=== PATIENT | female | born 1975 | race Caucasian/White ===

== ENCOUNTER 2017-05-09 11:09 | Emergency (ER) | payer OTHER ==
[2017-05-09] MEDS ORDERED: Sodium Chloride 0.9% 1,000 ML PRIMARY IV ONE (11:21)
[2017-05-09] MEDS ORDERED: Pantoprazole Inj 40 MG in Normal Saline Flush 10 ML IVP ONE (11:21)
[2017-05-09] MEDS ORDERED: NORMAL SALINE 10 ML SYRINGE FLUSH IVP PRN (11:21)
[2017-05-09 11:29] VITALS: RESP 18; TEMP 98.5
[2017-05-09] MEDS ORDERED: PANTOPRAZOLE IV 40 MG VIAL ONE (11:40)
[2017-05-09 11:51] LABS: BASOPHILS # (AUTO) 0.15 10*3/UL; BASOPHILS % (AUTO) 2.1 % (0-1); EOSINOPHILS # (AUTO) 0.11 10*3/UL; EOSINOPHILS % (AUTO) 1.5 % (0-8); HEMATOCRIT 43.9 % (37.0-47.0); HEMOGLOBIN 14.1 g/dL (12.0-16.0); LYMPHOCYTES # (AUTO) 1.81 10*3/uL; MEAN CORPUSCULAR HGB CONC 32.1 g/dL (33-37); MEAN CORPUSCULAR VOLUME 90.1 FL (81-99); MEAN PLATELET VOLUME 11.5 FL (7.4-12.2); MONOCYTES # (AUTO) 0.51 10*3/UL (0.3-0.8); MONOCYTES % (AUTO) 7.2 % (5-15); NEUTROPHILS # (AUTO) 4.49 10*3/UL; NEUTROPHILS % (AUTO) 63.3 % (50-80); RED BLOOD COUNT 4.87 10^6/uL (4.20-5.40)
[2017-05-09 11:54] LABS: BLOOD UREA NITROGEN 15 mg/dL (7-22); BUN/CREATININE RATIO 18.75 (6-20); CALCIUM 9.5 mg/dL (8.7-10.7); EST GLOMERULAR FILTRATION > 60 (>60 ml/min/1.73m(2)); LIPASE 186 IU/L (23-300); SERUM ALBUMIN 4.6 g/dL (3.5-4.8)
[2017-05-09 11:55] LABS: PLATELET MORPHOLOGY COMMENT NORMAL MORPHOLOGY (NORM); RBC MORPHOLOGY COMMENT NORMAL MORPHOLOGY (NORM); WBC MORPHOLOGY COMMENT NORMAL MORPHOLOGY (NORM)
[2017-05-09 12:15] LABS: BILIRUBIN,URINE NEGATIVE (NEG); CLARITY,URINE CLEAR (CLEAR); COLOR,URINE YELLOW; GLUCOSE, URINE (UA) NEGATIVE (NEG); NITRATE,URINE NEGATIVE (NEG); OCCULT BLOOD,URINE NEGATIVE (NEG); PH,URINE 7.5 (5.0-8.5); PROTEIN,URINE NEGATIVE (NEG); UROBILINOGEN,URINE 0.2 EU/dL (0.2)
[2017-05-09 12:17] LABS: URINE SAMPLE TYPE CLEAN CATCH URINE
--- NOTE | 2017-05-09 12:22 | PDOC ---
Abdomen/Flank HPI - General Chief Complaint: Abdomen Pain Stated Complaint: LUQ pain Date Seen by Provider: 05/09/17 Time Seen by Provider: 11:25 Source: POSITIVE: Patient Exam Limitations: POSITIVE: No limitations, Other (Patient is here in the emergency department with her healthcare advocate secondary to previous history of stroke and difficulty relating medical information and with memory at times) Nurse's Notes Reviewed & Considered: Yes - History of Present Illness Initial Comments: The patient is a 41-year-old female who presents to the emergency department with left upper quadrant abdominal pain. She states that she has an ongoing history of left upper quadrant abdominal pain for at least the past 2 years. She had previous sigmoid colon resection secondary to diverticulitis per Dr. Rivera in 2013. She also has had previous hysterectomy/bilateral oophorectomy, cholecystectomy. It sounds like she has undergone fairly extensive workup for this left upper quadrant abdominal pain previously. She was at one point diagnosed with gastroparesis. She states that she was evaluated at the [facility] in December of this year at which time she was told that this was likely not secondary to gastroparesis. 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 She states that much of her nausea and vomiting has improved since initiation of treatment with cortisol. She states that recently this pain in the left upper quadrant has worsened over the past week or 2. She states that she now also has a sharp stabbing pain that radiates through to the left flank. She denies fevers or chills. She states that her pain is not worsened with eating and her appetite has remained unchanged. She denies any change in bowel movements. She did have a colonoscopy down in [place] last week. She was told that she has several polyps as well as diverticular disease. Biopsies are still pending at this point. They did not perform endoscopy at the time of her colonoscopy. She denies urinary symptoms. She does not currently take any form of an acid medication. She previously was on proton pump inhibitor however this was discontinued several months back. She states that her current pain is most predominant just up underneath the rib on the left side, she does not have any increased pain with taking a deep breath and denies shortness of breath. - Patient Home Medications Home Medications: Home Medications Escitalopram Oxalate [Lexapro] 20 mg PO DAILY 05/09/17 Hydrocortisone 5 mg PO DAILY 05/09/17 Pantoprazole Sodium [Protonix] 40 mg PO DAILY #30 tablet 05/09/17 - Patient Allergies Allergies/Adverse Reactions: Allergies Allergy/AdvReac Type Severity Reaction Status Date / Time morphine Allergy Severe BLACK OUT Verified 05/09/17 11:12 Penicillins Allergy Severe Anaphylaxis Verified 05/09/17 11:12 fentanyl Allergy NOT Verified 05/09/17 11:12 APPLICABLE Past Medical History - heen HEENT History: Dentures/Partials Cardiovascular History: Hypertension Additional Cardiovasular History: LEAKY HEART VALVE/ MURMUR Respiratory History: Asthma Additional Respiratory History: SMOKERS COUGH Gastrointestinal History: GERD, Diverticulitis Additional Gastrointestinal History: ULCER Genitourinary History: Denies History Endocrine History: Layton's Disease Musculoskeletal History: Back Pain, Joint Pain Prosthesis or Implant: No Additional Musculoskeletal History: RESTLESS LEGS Neurological History: Migraines Additional Neurological History: ONE WEEK AGO/DIZZINESS Blood Disorders: Denies History Psychiatric History: Depression, Anxiety Disorders, ADHD, PTSD History of Sexually Transmitted Diseases: No Cancer History: Denies History In Past Year Been Physically Harmed or Verbally Threatened: No History of MDRO: No History of Other Communicable Diseases: No Tobacco Use: Former Smoker Alcohol Use: Occasionally Substance Use Type: None Previous Surgical History: Yes Type / Date of Surgery: HYST/ COLONOSCOPY/ EGD/ TUBAL/ DENTAL SX Anesthesia Reactions: No Malignant Hyperthermia: No Significant Family History: Heart disease, Cancer Past Medical History Reviewed: Reviewed - No Changes ROS - Limitations ROS Limitations: No Limitations Constitution: DENIES: Chills, Fever Cardiovascular: DENIES: Chest Pain Respiratory: DENIES: Hurts To Breathe, Shortness Of Breath Neurological: REPORTS: Denies Neuro Symptoms Gastrointestinal: REPORTS: Abdominal Pain. DENIES: Nausea, Vomitting, Diarrhea , Black Stools, Bloody Stools, Constipation Musculoskeletal: REPORTS: Denies MS Symptoms Genitourinary: REPORTS: Denies Symptoms. DENIES: Dysuria, Hematuria, Difficulty Urinating Eyes: REPORTS: Denies Symptoms ENT: REPORTS: Denies Symptoms Skin: DENIES: Rash Abdominal/Flank Pain PE - General Appearance General Appearance: POSITIVE: Alert, Cooperative, No Acute Distress - HEENT HEENT: POSITIVE: Head Inspection Nml, Eyes Inspection Nml, Ears Inspection Nml, Nose Inspection Nml, Pharynx Inspect. Nml, PERRL, EOMI - Neck Neck: POSITIVE: Normal Inspection. NEGATIVE: Lymphadenopathy - Respiratory Respiratory: POSITIVE: No Respiratory Distress, Breath Sounds Normal - Cardiovascular Cardiovascular: POSITIVE: Regular Rate and Rhythm, Heart Sounds Normal Peripheral Pulses: Dorsalis-pedis (R): 2+, Dorsalis-pedis (L): 2+ - Abdomen Abdomen: Soft: (All Quadrants), Normal Bowel Sounds: (All Quadrants), No Guarding: (All Quadrants), No Rebound: (All Quadrants), No Distention: (All Quadrants) Additional Abdominal Details: She does have some tenderness in the left upper quadrant up underneath the rib margin, no guarding or rebound tenderness, no palpable mass, mild left-sided CVA tenderness - Skin Skin: POSITIVE: Intact, No Rash - Extremities Extremity: Normal ROM: (All Extremities), Normal Inspection: (All Extremities) - Neurological Neurological: POSITIVE: Oriented X3, lock plater Normal As Tested, Motor Normal, Sensation Normal, Other (No focal neurologic deficits) Abdomen Progress - Results Reviewed by me Xrays/CTs/US Reviewed by me: Yes Discussed with Radiologist: Yes Radiology Findings: CT scan of the abdomen and pelvis with IV contrast reveals no acute intra-abdominal findings per radiologist. Lab Results Reviewed: Yes Lab Results:: Laboratory Results 05/09/17 05/09/17 Range/Units 11:37 12:08 WBC 7.10 (4.8-10.8) 10^3/uL RBC 4.87 (4.20-5.40) 10^6/uL Hgb 14.1 (12.0-16.0) g/dL Hct 43.9 (37.0-47.0) % MCV 90.1 (81-99) FL MCH 29.0 (27-31) PG MCHC 32.1 L (33-37) g/dL RDW Std Deviation 44.7 (39-50) fL RDW Coeff of Kuldeep 13.9 (11.5-14.5) % Plt Count 229 (140-350) 10*3/uL MPV 11.5 (7.4-12.2) FL Immature Gran % (Auto) 0.4 (0-5) % Neut % (Auto) 63.3 (50-80) % Lymph % (Auto) 25.5 (10-50) % Harper % (Auto) 7.2 (5-15) % Eos % (Auto) 1.5 (0-8) % Baso % (Auto) 2.1 H (0-1) % Immature Gran # (Auto) 0.03 10*3/UL Neut # (Auto) 4.49 10*3/UL Lymph # (Auto) 1.81 10*3/uL Harper # (Auto) 0.51 (0.3-0.8) 10*3/UL Eos # (Auto) 0.11 10*3/UL Baso # (Auto) 0.15 10*3/UL WBC Morphology Comment Normal morphology (NORM) Plt Morphology Comment Normal morphology (NORM) RBC Morph Comment Normal morphology (NORM) Sodium 143 (135-145) meq/L Potassium 4.3 (3.8-5.2) meq/L Chloride 109 (98-112) meq/L Carbon Dioxide 22 L (23-33) meq/L Anion Gap 12 (5-20) BUN 15 (7-22) mg/dL Creatinine 0.8 (0.50-1.20) mg/dL Estimated GFR > 60 (>60 ml/min/1.73m(2)) BUN/Creatinine Ratio 18.75 (6-20) Glucose 83 (78-110) mg/dL Calculated Osmolality 295.0 H (267-292) mOsm/kg Calcium 9.5 (8.7-10.7) mg/dL Total Bilirubin 0.3 (0.3-1.2) mg/dL AST 31 (8-39) IU/L ALT 33 (9-52) IU/L Alkaline Phosphatase 96 (38-126) IU/L C-Reactive Protein 1.0 H (0.0-0.9) mg/dL Total Protein 7.9 (6.1-8.0) g/dL Albumin 4.6 (3.5-4.8) g/dL Globulin 3.3 (2.50-4.10) g/dL Albumin/Globulin Ratio 1.30 (1.3-2.0) mg/g Amylase 78 (30-110) U/L Lipase 186 (23-300) IU/L Ur Collection Type Clean catch urine Urine Color Yellow Urine Clarity Clear (CLEAR) Urine pH 7.5 (5.0-8.5) Ur Specific [place] 1.020 (1.005-1.030) Urine Protein Negative (NEG) mg/dl Urine Glucose (UA) Negative (NEG) mg/dL Urine Ketones Negative (NEG) Urine Occult Blood Negative (NEG) Urine Nitrate Negative (NEG) Urine Bilirubin Negative (NEG) Urine Urobilinogen 0.2 (0.2) EU/dL Ur Leukocyte Esterase Negative (NEG) Ur Culture Indicated? Culture not set - Patient's Progress MDM / ED Course: An IV was established and the patient did receive Protonix 40 mg IV. Her lab work is all reassuring. Her CT of the abdomen and pelvis with IV contrast reveals no evidence of acute intra-abdominal findings. She does have some degenerative change in her spine. At this point the patient has had left upper quadrant pain for greater than 2 years. There does not appear to be any acute findings of concern currently. She has been off of her proton pump inhibitor for some time and it is possible she may have some component of gastritis or ulcer. She is advised to start Protonix 40 mg daily. She will return to the emergency room if she develops increased pain, fever, any worsening or change in symptoms. She will follow-up with her technical assoc, general surgeon or primary care provider within 5-7 days. Patient Care Time - Estimated PCT Patient Care Time (In Minutes): 35 Vital Signs - Recent Vital Signs Vital Signs: Vital Signs (Last 8 hours) Temp Pulse Resp BP Pulse Ox 05/09/17 11:20 98.5 F 65 18 143/98 98 - VS Reviewed Vital Signs Reviewed: Yes Discharge Clinical Impression: Abdominal pain Discharge Disposition: Discharged to Home Condition: Stable Prescriptions / Orders: Pantoprazole Sodium [Protonix] 40 mg PO DAILY #30 tablet Patient Instructions Given at Discharge: Abdominal Pain (ED) Additional Instructions: The exact cause of the pain in the left upper abdomen that radiates through to the back remains unclear. Your blood work did not reveal any evidence of infection, liver functions and pancreatic enzymes were normal, electrolytes and kidney function was normal. The urinalysis did not reveal any evidence of blood or infection. The CAT scan did not show any evidence of tumor or mass, no evidence of infection. There was some degenerative changes in the spine. It is thought that this pain might represent some irritation in the stomach called gastritis or even an ulcer. Recommend starting Protonix 40 mg daily. Return to the emergency room if increased pain, fevers or chills, any worsening or change in symptoms. Recommend follow-up with gastroenterology, your general surgeon, or your primary care within 1 week. Follow Up With: TALISHA PATRICIA [Primary Care Provider] -
--- NOTE | 2017-05-09 14:34 | DI ---
CT ABD W/CN AND PELVIS W/CN,05/09/2017 11:22 AM: Clinical History: Upper abdominal pain status post colectomy. Previous Exam: None at this facility. Findings: Multiple helically acquired CT images are obtained through the abdomen and pelvis there is mild fatty infiltration of the liver. The spleen, adrenals and pancreas are unremarkable. The urinary bladder is unremarkable. There is no evidence of free air nor free fluid. Visualized portions of the colon are unremarkable. Patient is status post colectomy. The pancreas is unremarkable. There is no mesenteric nor retroperitoneal lymphadenopathy. The ureters are normal in course and caliber with orthotopic insertion on the urinary bladder. Mild diffuse degenerative changes of the spine are seen. Impression: No acute intra-abdominal pathology.
== END 2017-05-09 14:55 | disposition home or self-care (01) ==
LOC: ER 11:09
DX: R10.12 Left upper quadrant pain (principal); Z90.49 Acquired absence of other specified parts of digestive tract
CPT/HCPCS: 74177; 80053; 81003; 82150; 83690; 85025; 86140; 96374; 99283; J3490; J7030

== ENCOUNTER → 2017-05-21 | Outpatient (CLI) | payer OTHER | LOC: MMPC 10:00 | PROVIDERS: ATTEND Surgery | DX: D12.2 Benign neoplasm of ascending colon (principal) ==

== ENCOUNTER 2019-02-19 10:32 | Inpatient (IN) ==
[2019-02-19] MEDS ORDERED: Sodium Chloride 0.9% 1,000 ML PRIMARY IV ONE ×2 (10:48→13:28)
[2019-02-19 11:09] LABS: BASOPHILS # (AUTO) 0.05 10*3/UL; BASOPHILS % (AUTO) 0.4 % (0-1); EOSINOPHILS # (AUTO) 0.15 10*3/UL; EOSINOPHILS % (AUTO) 1.3 % (0-8); Hemoglobin [HGB] 15.1 g/dL (12.0-16.0); MEAN CORPUSCULAR HEMOGLOBIN 29.3 PG (27-31); MEAN CORPUSCULAR HGB CONC 33.6 g/dL (33-37); MEAN CORPUSCULAR VOLUME 87.4 FL (81-99); MEAN PLATELET VOLUME 11.7 FL (7.4-12.2); MONOCYTES # (AUTO) 0.75 10*3/UL (0.3-0.8); MONOCYTES % (AUTO) 6.5 % (5-15); NEUTROPHILS # (AUTO) 8.21 10*3/UL; NEUTROPHILS % (AUTO) 71.6 % (50-80); RED BLOOD COUNT 5.15 10^6/uL (4.20-5.40)
[2019-02-19 11:11] LABS: PLATELET MORPHOLOGY COMMENT NORMAL MORPHOLOGY (NORM); RBC MORPHOLOGY COMMENT NORMAL MORPHOLOGY (NORM); WBC MORPHOLOGY COMMENT NORMAL MORPHOLOGY (NORM)
[2019-02-19 11:21] LABS: BLOOD UREA NITROGEN 11 mg/dL (7-22); BUN/CREATININE RATIO 12.22 (6-20); LIPASE 142 IU/L (23-300); SERUM ALBUMIN 5.2 g/dL (3.5-4.8)
[2019-02-19 11:26] LABS: BILIRUBIN,URINE NEGATIVE (NEG); CLARITY,URINE CLEAR (CLEAR); COLOR,URINE YELLOW (Y); GLUCOSE, URINE (UA) NEGATIVE (NEG); OCCULT BLOOD,URINE NEGATIVE (NEG); PROTEIN,URINE NEGATIVE (NEG); UROBILINOGEN,URINE 0.2 EU/dL (0.2)
[2019-02-19 11:28] LABS: URINE SAMPLE TYPE CLEAN CATCH URINE
--- NOTE | 2019-02-19 11:41 | PDOC ---
Abdomen/Flank HPI - General Chief Complaint: Abdomen Pain Stated Complaint: abd pain Date Seen by Provider: 02/19/19 Time Seen by Provider: 10:45 Source: POSITIVE: Patient Exam Limitations: POSITIVE: No limitations Nurse's Notes Reviewed & Considered: Yes - History of Present Illness Initial Comments: The patient is a 43-year-old female who presents to the emergency department with complaints of worsening left lower abdominal pain. The patient states that she was seen at [facility] for left lower abdominal pain and continued pain in her left upper abdomen. She also had blood in her stool at that time. She was diagnosed with diverticulitis and started on Cipro and Flagyl. She states that she has been on this medication for approximately a week. She states that the pain in her left lower abdomen seems to be getting worse. She also feels more bloated. She states that she has not really been able to have much of a bowel movement for the past week. She does report increased nausea and had several episodes of emesis yesterday after eating some [employer]. She has not had any obvious fevers. She denies difficulty urinating. She does have a history of prior partial bowel resection secondary to a div erticulitis which ruptured in 2014. The surgery was done per Dr. Rivera and Dr. Cifuentes. - Patient Home Medications Home Medications: Home Medications Lisinopril 5 mg PO DAILY 02/06/19 - Patient Allergies Allergies/Adverse Reactions: Allergies Allergy/AdvReac Type Severity Reaction Status Date / Time morphine Allergy Severe BLACK OUT Verified 02/19/19 10:35 Penicillins Allergy Severe Anaphylaxis Verified 02/19/19 10:35 fentanyl Allergy NOT Verified 02/19/19 10:35 APPLICABLE topomax AdvReac Intermediate NOT Uncoded 02/19/19 10:35 APPLICABLE Past Medical History - heen HEENT History: Dentures/Partials Additional HEENT History: Upper and lower dentures Cardiovascular History: Denies History, Other (please comment) Additional Cardiovasular History: LEAKY HEART VALVE/ MURMUR. Denies HTN.DVT Respiratory History: Asthma, Sleep Apnea, Home CPAP Use, Snoring Additional Respiratory History: "SMOKERS COUGH". Gastrointestinal History: GERD, Diverticulitis Additional Gastrointestinal History: ULCER/Had hemicolectomy which took care of the diverticulitis Genitourinary History: Denies History, Other (please comment) Additional Genitourinary History: Fatty Liver Endocrine History: Trinity's Disease Musculoskeletal History: Fibromyalgia, Back Pain, Joint Pain Prosthesis or Implant: No Additional Musculoskeletal History: CERVICAL SPONDYLOSIS/ LUMBAR DDD. 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 History of Sexually Transmitted Diseases: No Cancer History: Denies History In Past Year Been Physically Harmed or Verbally Threatened: No History of MDRO: No History of Other Communicable Diseases: No Tobacco Use: Former Smoker Alcohol Use: Occasionally In the Past 12 Months, Have Used or Abuse Any Substance: None Previous Surgical History: Yes Type / Date of Surgery: HYST/BSO/ COLONOSCOPY/ EGD/ TUBAL/ DENTAL sx for dentures/Maryjane/ B CTR/Lasix Bilat/Lumbar Puncture/Hemicolectomy Anesthesia Reactions: No Malignant Hyperthermia: No Significant Family History: Asthma, Heart disease, Cancer, Diabetes, Hypertens ion, Lung disease Past Medical History Reviewed: Reviewed - No Changes ROS - Limitations ROS Limitations: No Limitations Constitution: REPORTS: Chills. DENIES: Fever Cardiovascular: REPORTS: Denies Cardiac Symptoms Respiratory: REPORTS: Denies Resp Symptoms Neurological: REPORTS: Denies Neuro Symptoms Gastrointestinal: REPORTS: Abdominal Pain, Nausea, Vomitting, Bloody Stools ([place] t week), Constipation Musculoskeletal: REPORTS: Denies MS Symptoms Genitourinary: REPORTS: Denies Symptoms Eyes: REPORTS: Denies Symptoms ENT: REPORTS: Denies Symptoms Skin: DENIES: Rash Abdominal/Flank Pain PE - General Appearance General Appearance: POSITIVE: Alert, Cooperative, No Acute Distress - HEENT HEENT: POSITIVE: Head Inspection Nml, Eyes Inspection Nml, Ears Inspection Nml, Nose Inspection Nml - Respiratory Respiratory: POSITIVE: No Respiratory Distress, Breath Sounds Normal - Cardiovascular Cardiovascular: POSITIVE: Regular Rate and Rhythm, Heart Sounds Normal Peripheral Pulses: Dorsalis-pedis (R): 2+, Dorsalis-pedis (L): 2+ - Abdomen Abdomen: Soft: (All Quadrants), Normal Bowel Sounds: (All Quadrants) Additional Abdominal Details: Her abdomen is somewhat distended, bowel sounds are present and she has no guarding or rebound tenderness, she does have tenderness in the left lower abdomen to deep palpation as well as some tenderness in the left upper abdomen, no CVA tenderness. - Back Back: POSITIVE: Normal Inspection - Skin Skin: POSITIVE: Intact, No Rash - Extremities Extremity: Normal ROM: (All Extremities), Normal Inspection: (All Extremities) - Neurological Neurological: POSITIVE: Oriented X3, manager clinical applications Normal As Tested, Motor Normal, Sensation Normal Abdomen Progress - Results Reviewed by me Xrays/CTs/US Reviewed by me: Yes Discussed with Radiologist: Yes Radiology Findings: CT scan of the abdomen and pelvis with IV contrast does show some worsening of the inflammatory change near the sigmoid colon consistent with worsening diverticulitis when compared to her CAT scan from 1 week ago at [facility] per radiologist. Lab Results Reviewed by Me: Yes CBC and BMP: 02/19/19 10:48 02/19/19 10:48 Lab Results:: Laboratory Results 02/19/19 02/19/19 02/19/19 10:48 10:48 10:50 WBC 11.48 H RBC 5.15 Hgb 15.1 Hct 45.0 MCV 87.4 MCH 29.3 MCHC 33.6 RDW Std Deviation 42.5 RDW Coeff of Kuldeep 13.5 Plt Count 236 MPV 11.7 Immature Gran % (Auto) 0.2 Neut % (Auto) 71.6 Lymph % (Auto) 20.0 [place] % (Auto) 6.5 Eos % (Auto) 1.3 Baso % (Auto) 0.4 Immature Gran # (Auto) 0.02 Neut # (Auto) 8.21 Lymph # (Auto) 2.30 [place] # (Auto) 0.75 Eos # (Auto) 0.15 Baso # (Auto) 0.05 WBC Morphology Comment Normal morphology Plt Morphology Comment Normal morphology RBC Morph Comment Normal morphology Sodium 142 Potassium 3.8 Chloride 107 Carbon Dioxide 24 Anion Gap 11 BUN 11 Creatinine 0.9 Estimated GFR > 60 BUN/Creatinine Ratio 12.22 Glucose 98 Calculated Osmolality 292.0 Calcium 9.8 Magnesium 2.3 Total Bilirubin 0.5 AST 35 ALT 39 Alkaline Phosphatase 111 C-Reactive Protein 1.8 H Total Protein 8.7 H Albumin 5.2 H Globulin 3.5 Albumin/Globulin Ratio 1.40 Amylase 86 Lipase 142 Ur Collection Type Clean catch urine Urine Color Yellow Urine Clarity Clear Urine pH 6.0 Ur Specific [place] <=1.005 Urine Protein Negative Urine Glucose (UA) Negative Urine Ketones Negative Urine Occult Blood Negative Urine Nitrate Negative Urine Bilirubin Negative Urine Urobilinogen 0.2 Ur Leukocyte Esterase Negative Ur Culture Indicated? Culture not set - Patient's Progress MDM / ED Course: IV was established and repeat labs were drawn. Repeat CT of the abdomen and pelvis was also ordered. Her white blood cell count and CRP are both mildly elevated, the remainder of her blood work is unremarkable. The repeat CT scan does show some worsening inflammatory change near the sigmoid colon without evidence of rupture, abscess or obstruction per radiologist. I did discuss the patient with Dr. Cifuentes and he recommended inpatient treatment with IV antibiotics. I discussed these findings and recommendations with the patient and she is in agreement with this plan. Dr. Casillas has agreed to admit the patient for further care with surgical consultation from Dr. Cifuentes. She did receive a dose of Invanz 1 g IV. - Consult Counseled: POSITIVE: Patient, RE: Lab Results, RE: Radiology Results, RE: DX Patient Care Time - Estimated PCT Patient Care Time (In Minutes): 35 Vital Signs - Recent Vital Signs Vital Signs: Vital Signs (Last 8 hours) Temp Pulse Resp BP Pulse Ox 02/19/19 10:40 96.6 F L 82 16 154/104 98 - VS Reviewed Vital Signs Reviewed: Yes Discharge Clinical Impression: Diverticulitis Qualifiers: Diverticulitis site: large intestine Diverticulitis bleeding: without bleeding Diverticulitis complication: without perforation or abscess Qualified Code(s): K57.32 - Diverticulitis of large intestine without perforation or abscess without bleeding Discharge Disposition: Admit to Inpatient Condition: Fair Date Decision to Admit to Inpatient: 02/19/19 Time Decision to Admit to Inpatient: 13:15
[2019-02-19] MEDS ORDERED: Ertapenem Inj 1 GM in Sodium Chloride 0.9% 100 ML IV ONE (13:06)
--- NOTE | 2019-02-19 13:22 | DI ---
CT ABDOMEN SCAN WITH IV CONTRAST, 02/19/2019 10:49 AM : Clinical History: Abdominal pain. Previous bowel resection for diverticulitis. Patient recently seen at an outside facility and is being treated for acute diverticulitis. Previous Exam: 05/09/2017. Comparison is made with the most recent study from [facility] [place], [place] dated 02/12/2019. IV Contrast: 75 mL of Isovue 300. Oral Contrast: No oral contrast ordered. Rectal Contrast: No rectal contrast ordered. Lungs: No infiltrate or effusion. Liver: Moderate hepatomegaly with diffuse fatty infiltration. Gallbladder: Status post cholecystectomy. Common bile duct measures 5-6 mm. Adrenal Glands: Normal. Spleen: Normal. Pancreas: Normal. Kidneys: Normal size, shape, position and contour. No hydronephrosis or hydroureter. No renal or uret eral calculi. Masses: None. Lymph Nodes: Normal. Ascites: No ascites. Free Air: None. Spine: Normal lower thoracic and lumbar spine. READING: Moderate hepatomegaly with diffuse fatty infiltration. The remainder of the study is normal. CT PELVIS SCAN WITH IV CONTRAST, 02/19/2019 10:49 AM: Clinical History: See above. Previous Exam: None at this facility. Contrast: Same bolus used for CT scans of the abdomen. Masses: No masses or enhancing lesions. Ascites: None. Free Air: None. Lymph Nodes: No adenopathy. Appendix: Not identified. No cecal or right lower quadrant inflammatory mass. Small Bowel: Normal small bowel, terminal ileum, and ileocecal valve. Colon: The cecum lies in the pelvis and has a normal appearance. In the distal descending colon, ther e is localized enhancement of the mucosa along with wall thickening and periserosal inflammatory/infi ltrative change. Review of the previous study from 02/12/2019 shows that the same area there we had an y periserosal inflammatory change indicating this is a substantial degree of worsening. No abscess ca vity is visualized. Status post sigmoid colon resection with end-to-end anastomosis. Uterus: Status post hysterectomy. Ovaries: Status post bilateral salpingo-oophorectomy. Bladder: Almost completely empty but unremarkable. Hernias: None. Bony Pelvis: Normal sacrum, pelvic bones, and hips. READING: There is evidence of inflammatory change involving the distal portion of the descending colon with en hancement of the mucosa and thickening of the wall and periserosal inflammatory/infiltrative change. There is no associated abscess. With the history of prior colon surgery for diverticulitis, this woul d be consistent with acute diverticulitis it has become worse since 02/12/2019.
[2019-02-19] MEDS ORDERED: DOCUSATE 100 MG CAPSULE PO PRN (13:48)
[2019-02-19] MEDS ORDERED: LIDOCAINE W/ SODIUM BICARB 0.5 ML SYR SUBD PRN (13:48)
[2019-02-19] MEDS ORDERED: CALCIUM CARBONATE 500 MG (TUMS) CHEWABLE TABLET PO PRN (13:48)
[2019-02-19] MEDS: Sodium Chloride 0.9% 1,000 ML PRIMARY IV SCH ×2 (14:08→22:00)
[2019-02-19] MEDS: ACETAMINOPHEN 325 MG TABLET PO PRN (14:31)
[2019-02-19] MEDS: ONDANSETRON 4 MG/2 ML VIAL IVP PRN ×2 (14:36→19:09)
--- NOTE | 2019-02-19 14:43 | PDOC ---
HPI - History of Present Illness Date of Service: 02/19/19 Time of Service: 14:35 Chief Complaint: abdominal pain and nausea and vomiting History of Present Illness: This is a 43 YO female with known history of CAD (60% artery occlusion), diver ticular disease s/p partial colon resection, and hypertension who presents here with abdominal pain, nausea and vomiting. She states this started a week ago with some accelerated high blood pressure. She came to the ER here, and her blood pressures improved with treatment. Shortly after, the patient developed some blood in her stool and went to the ER in [place] and was diagnosed with diverticulitis. There was no abscess or perforation. The patient was place on cipro and flagyl. She has been on them the past week but had worsening onset of abdominal pain in the left lower quadrant, and could not keep her antibiotics down. She had nausea and vomiting. No fever. She presented here today with worsening of her symptoms. In the emergency room, she had a CT scan of the abdomen and pelvis with contrast that showed worsening diverticular symptoms in the pelvis. She did not have any findings to the show abscess or perforation. This discussed with surgery, and patient was put on Invanz, and she is being admitted with antiemetics that can be given IV as well as pain medications, and Invanz IV every 24 hours. I discussed with surgery, and we may put her on a clear diet. Past Medical History Medical History: 1. Coronary artery disease, nonobstructive enough for stent placement. 2. Hypertension. 3. Diverticular disease status post coronary section Surgical History: 1. Total hysterectomy. 2. Cyst rupture. 3. Bilateral carpal tunnel. 4. Colon resection, partial, related to diverticular disease Pertinent Family History: She states that she had a relative of diverticular disease complications. Her sister has had coronary artery disease and heart valve replacement Past Social History: Quit smoking in 2013. Rarely drinks alcohol. Lives in [place], [place]. Has 2 children but she states they are having some digestive issues. Tobacco Use: Former Smoker In the Past 12 Months, Have Used or Abuse Any of the Following Substance: None Alcohol Use: Rarely Medication / Allergies Home Medications: Home Medications Medication Instructions Recorded Confirmed Type Lisinopril 5 mg PO DAILY 02/06/19 02/19/19 History Allergies/Adverse Reactions: Allergies Allergy/AdvReac Type Severity Reaction Status Date / Time morphine Allergy Severe BLACK OUT Verified 02/19/19 10:35 Penicillins Allergy Severe Anaphylaxis Verified 02/19/19 10:35 fentanyl Allergy NOT Verified 02/19/19 10:35 APPLICABLE topomax AdvReac Intermediate NOT Uncoded 02/19/19 10:35 APPLICABLE Review of Systems - Review of Systems All Systems: Reviewed & No Additional Complaints Except as Stated (I did a 12 point review systems and it was negative other than that discussed below and in the history of present illness.) - Additonal Details Additional ROS Details: At some thyroid issues, but is not on any thyroid replacement. Met with an radar systems engineer but did not get along with him and there were really no treatment recommendations per the patient's history. Exam - Vitals Vital Signs: Vital Signs Temperature 96.6 F Temperature Source Temporal Artery Scan Pulse Rate [Pulse Oximeter 70 Left] Respiratory Rate 16 Blood Pressure [Left Arm] 154/104 Pulse Ox 98 Oxygen Delivery Method Room Air Height 5 ft 4 in Weight 213 lb - General General Appearance: No Acute Distress, Cooperative - Head Head Exam: Normal Inspection, Normocephalic, Atraumatic - Eye Eye Exam: POSITIVE: No Scleral Icterus - ENT ENT Exam: POSITIVE: Mucous Membranes Moist - Neck Neck Exam: Normal Inspection, No Tenderness, No Lymphadenopathy, No Thyromegaly, JVP is not Raised - Respiratory Respiratory Exam: POSITIVE: Clear to Auscultation - Bilaterally, Breathing Non Labored, Normal to Percussion and Palpation - Cardiovascular Cardiovascular Exam: POSITIVE: RRR, No Murmur, No Clicks, No Gallops, No Rubs, No JVD - GI/Abdominal GI/Abdominal Exam: POSITIVE: Normal Bowel Sounds, Non Distended, Soft Additional GI/Abdominal Exam Details: Has some mild left lower quadrant tenderness. - Rectal Rectal Exam: POSITIVE: Deferred - External Exam: POSITIVE: Deferred Exam: POSITIVE: Deferred - Extremities Extremities Exam: POSITIVE: No Clubbing Present, No Edema Present, No Cyanosis Present - Back Back Exam: POSITIVE: No CVA Tenderness - Neurological Neurological Exam: POSITIVE: Alert, Oriented x 3, No Facial Droop, Speech Intact / Clear, Moves All Extremities Equally - Psychiatric Psychiatric Exam: POSITIVE: Normal Affect, Normal Mood Results - Labs CBC and BMP: 02/19/19 10:48 02/19/19 10:48 Additional Lab Results: Laboratory Results 04/04/0402/19/19 02/19/19 10:48 10:48 10:50 WBC 11.48 H RBC 5.15 Hgb 15.1 Hct 45.0 MCV 87.4 MCH 29.3 MCHC 33.6 RDW Std Deviation 42.5 RDW Coeff of K[place] 13.5 Plt Count 236 MPV 11.7 Immature Gran % (Auto) 0.2 Neut % (Auto) 71.6 Lymph % (Auto) 20.0 [place] % (Auto) 6.5 Eos % (Auto) 1.3 Baso % (Auto) 0.4 Immature Gran # (Auto) 0.02 Neut # (Auto) 8.21 Lymph # (Auto) 2.30 [place] # (Auto) 0.75 Eos # (Auto) 0.15 Baso # (Auto) 0.05 WBC Morphology Comment Normal morphology Plt Morphology Comment Normal morphology RBC Morph Comment Normal morphology Sodium 142 Potassium 3.8 Chloride 107 Carbon Dioxide 24 Anion Gap 11 BUN 11 Creatinine 0.9 Estimated GFR > 60 BUN/Creatinine Ratio 12.22 Glucose 98 Calculated Osmolality 292.0 Calcium 9.8 Magnesium 2.3 Total Bilirubin 0.5 AST 35 ALT 39 Alkaline Phosphatase 111 C-Reactive Protein 1.8 H Total Protein 8.7 H Albumin 5.2 H Globulin 3.5 Albumin/Globulin Ratio 1.40 Amylase 86 Lipase 142 Ur Collection Type Clean catch urine Urine Color Yellow Urine Clarity Clear Urine pH 6.0 Ur Specific [place] <=1.005 Urine Protein Negative Urine Glucose (UA) Negative Urine Ketones Negative Urine Occult Blood Negative Urine Nitrate Negative Urine Bilirubin Negative Urine Urobilinogen 0.2 Ur Leukocyte Esterase Negative Ur Culture Indicated? Culture not set - Imaging Status: Image Reviewed by Me (CT scan of the abdomen and pelvis has some inflammatory changes in the colon. I reviewed the radiology report as well.) Assessment and Plan - Patient Problems (1) Diverticulitis Current Visit: Yes Status: Acute Code(s): K57.92 - Diverticulitis of intestine, part unspecified, without perforation or abscess without bleeding Qualifiers: Diverticulitis site: large intestine Diverticulitis bleeding: without bleeding Diverticulitis complication: without perforation or abscess Qualified Code(s): K57.32 - Diverticulitis of large intestine without perforation or abscess without bleeding (2) Hypertension Current Visit: Yes Status: Chronic Code(s): I10 - Essential (primary) hypertension Qualifiers: Hypertension type: essential hypertension Qualified Code(s): I10 - Essential (primary) hypertension - Assessment / Plan Additional Assessment/Plan Details: This diverticulitis is complicated by nausea and vomiting, inability to hold down oral medications, and increasing pain. Although there is no evidence of abscess or perforation at this point, given the symptoms, the patient is not a candidate for outpatient therapy as she cannot tolerate by mouth antibiotics at this time. Admit the patient with IV antibiotics, IV fluids, and surgery consultation. Labs in a.m. Will likely need an extended course of antibiotics for this diverticulitis. We'll try to continue antihypertensive drugs.
--- NOTE | 2019-02-19 15:28 | CONSULT ---
Consult Note - Consult Consult Date: 02/19/19 Reason for Consult: PreOp Consulation : General Surgery Requesting Physician: Dr. Lyle, Dr. Casillas. Primary Care Provider: RAY BRASHER - History of Present Illness History of Present Illness: The patient is a 43-year-old female who reports she was well until about 2 weeks ago. She had a bout of hypertension. That was treated. She then presented a week ago [facility] [place] for a bloody bowel movement. She had a CT scan and was diagnosed with mild diverticulitis. She was started on outpatient Cipro and Flagyl. She failed to improve. She developed nausea and vomiting and could not keep her antibiotics down. She presented to our emergency room this morning. CT scan was done. It shows worsening diverticulitis. There is no evidence of abscess or free air. She was admitted and I am asked to see her in consultation. Her white count was mildly elevated at 11,500. Her C-reactive protein is mildly elevated at 1.8. Patient had a prior history of diverticulitis. She underwent a sigmoid colectomy with primary anastomosis in November 2014. Her last colonoscopy was in August 2017 for some polyps. She reports it's been difficult to pass gas or have a bowel movement for the last week. She did have a small bowel movement this morning. Review of Systems - Gastrointestinal Gastrointestinal / Abdominal: REPORTS: Nausea, Vomiting, Abdominal Pain, Bloody Stool, Poor Appetite, Other, See HPI Past Medical History Medical History: 1. Coronary artery disease, nonobstructive enough for stent placement. 2. Hypertension. 3. Diverticular disease status post coronary section. 4. History of adrenal insufficiency Surgical History: 1. Total hysterectomy. 2. Cyst rupture. 3. Bilateral c arpal tunnel. 4. Colon resection, partial, related to diverticular disease. 5. Multiple lumbar punctures. 6. Multiple colonoscopies-- last August 2017. 7. Status post laparoscopic cholecystectomy Pertinent Family History: She states that she had a relative of diverticular disease complications. Her sister has had coronary artery disease and heart valve replacement Past Social History: Quit smoking in 2013. Rarely drinks alcohol. Lives in [place], [place]. Has 2 children but she states they are having some digestive issues. Tobacco Use: Former Smoker In the Past 12 Months, Have Used or Abuse Any of the Following Substance: None Alcohol Use: Rarely Medication / Allergies Home Medications: Home Medications Medication Instructions Recorded Confirmed Type Lisinopril 5 mg PO DAILY 02/06/19 02/19/19 History Allergies/Adverse Reactions: Allergies Allergy/AdvReac Type Severity Reaction Status Date / Time morphine Allergy Severe BLACK OUT Verified 02/19/19 10:35 Penicillins Allergy Severe Anaphylaxis Verified 02/19/19 10:35 fentanyl Allergy NOT Verified 02/19/19 10:35 APPLICABLE topomax AdvReac Intermediate NOT Uncoded 02/19/19 10:35 APPLICABLE Results - Labs CBC and BMP: 02/19/19 10:48 02/19/19 10:48 - Imaging Status: Image Reviewed by Me, Report Reviewed by Me Exam - Vitals Vital Signs: Vital Signs Temperature 96.6 F Temperature Source Temporal Artery Scan Pulse Rate [Pulse Oximeter 70 Left] Respiratory Rate 16 Blood Pressure [Left Arm] 154/104 Pulse Ox 98 Oxygen Delivery Method Room Air Height 5 ft 4 in Weight 213 lb - General General Appearance: Cooperative, Mild Distress - Respiratory Respiratory Exam: POSITIVE: Clear to Auscultation - Bilaterally, Breathing Non Labored - Cardiovascular Cardiovascular Exam: POSITIVE: RRR, No Murmur - GI/Abdominal GI/Abdominal Exam: POSITIVE: Normal Bowel Sounds, Soft Additional GI/Abdominal Exam Details: Abdomen is obese. There is a well-healed midline scar. There is diffuse left- sided tenderness. No signs of an acute abdomen or a rigid abdomen. Exam consistent with diverticulitis of the descending colon. - Rectal Rectal Exam: POSITIVE: Deferred - Neurological Neurological Exam: POSITIVE: Oriented x 3 - Psychiatric Psychiatric Exam: POSITIVE: Normal Affect, Normal Mood Assessment and Plan - Patient Problems (1) Acute diverticulitis Current Visit: Yes Status: Acute Priority: High Onset Date: 02/12/19 Comment: Patient failed outpatient treatment. Has pain medications, follow-up labs, and IV Invanz ordered. Recommend at least 72 hours of IV antibiotics. May be a candidate for ongoing outpatient IV antibiotics as she has failed outpatient oral medications. Recommend a minimum of 2 weeks total of antibiotics. Patient should see me in the office in 3-4 weeks after discharge and we will plan a follow-up colonoscopy 6-8 weeks after resolution of her acute diverticulitis. If she is improved I will not plan not to see her this weekend. If there is any concerns or signs of deterioration I would be happy to come in and see her. I discussed this with the patient and Dr. Casillas. He will let me know if he would like me to see her over the weekend. Code(s): K57.92 - Diverticulitis of intestine, part unspecified, without perforation or abscess without bleeding
[2019-02-19] MEDS: HYDROmorphone 2 MG/1 ML IVP PRN ×3 (16:11→22:09)
[2019-02-20] MEDS: HYDROmorphone 2 MG/1 ML IVP PRN ×5 (04:32→20:27)
[2019-02-20] MEDS: ONDANSETRON 4 MG/2 ML VIAL IVP PRN ×4 (04:36→20:27)
[2019-02-20 05:21] LABS: BASOPHILS # (AUTO) 0.05 10*3/UL; BASOPHILS % (AUTO) 0.9 % (0-1); EOSINOPHILS # (AUTO) 0.13 10*3/UL; EOSINOPHILS % (AUTO) 2.5 % (0-8); Hematocrit [HCT] 40.2 % (37.0-47.0); Hemoglobin [HGB] 13.1 g/dL (12.0-16.0); LYMPHOCYTES # (AUTO) 1.83 10*3/uL; MEAN CORPUSCULAR HEMOGLOBIN 29.1 PG (27-31); MEAN CORPUSCULAR HGB CONC 32.6 g/dL (33-37); MEAN CORPUSCULAR VOLUME 89.3 FL (81-99); MEAN PLATELET VOLUME 11.9 FL (7.4-12.2); MONOCYTES # (AUTO) 0.34 10*3/UL (0.3-0.8); MONOCYTES % (AUTO) 6.4 % (5-15); NEUTROPHILS # (AUTO) 2.93 10*3/UL; NEUTROPHILS % (AUTO) 55.4 % (50-80)
[2019-02-20 05:32] LABS: PLATELET MORPHOLOGY COMMENT NORMAL MORPHOLOGY (NORM); RBC MORPHOLOGY COMMENT NORMAL MORPHOLOGY (NORM); WBC MORPHOLOGY COMMENT NORMAL MORPHOLOGY (NORM)
[2019-02-20 05:38] LABS: BLOOD UREA NITROGEN 8 mg/dL (7-22); BUN/CREATININE RATIO 8.88 (6-20); SERUM ALBUMIN 3.9 g/dL (3.5-4.8)
[2019-02-20] MEDS: Sodium Chloride 0.9% 1,000 ML PRIMARY IV SCH ×2 (05:48→13:00)
[2019-02-20] MEDS: LISINOPRIL 5 MG TABLET PO SCH (08:16)
--- NOTE | 2019-02-20 10:28 | PDOC(PROG) ---
Date of Service: 02/20/19 Time of Service: 10:26 Interval History: Complains of nausea, no vomiting. Abdominal pain persistent, particularly in left lower quadrant. No chest pain and no shortness of breath. Objective : Data - Labs CBC and BMP: 02/20/19 04:24 02/20/19 04:24 Objective : Exam - General General Appearance: No Acute Distress, Cooperative Additional General Exam Details: Vital Signs - Last Taken Temperature 97.4 F 02/20/19 08:08 Pulse Rate 79 02/20/19 08:08 Respiratory Rate 20 02/20/19 08:08 Blood Pressure 136/99 02/20/19 08:08 Pulse Ox 98 02/20/19 08:08 - Eye Eye Exam: No Scleral Icterus - ENT ENT Exam: Mucous Membranes Moist - Neck Neck Exam: JVP is not Raised - Respiratory Respiratory Exam: Clear to Auscultation - Bilaterally, Breathing Non Labored - Cardiovascular Cardiovascular Exam: RRR, No Murmur, No Clicks, No Gallops, No Rubs, No JVD - GI/Abdominal GI/Abdominal Exam: Normal Bowel Sounds, Non Distended, Soft Additional GI/Abdominal Exam Details: Patient complains of tenderness with left lower quadrant palpation - Extremities Extremities Exam: No Clubbing Present, No Edema Present, No Cyanosis Present - Neurological Neurological Exam: Alert, Oriented x 3, No Facial Droop, Speech Intact / Clear, Moves All Extremities Equally Assessment and Plan - Patient Problems (1) Diverticulitis Current Visit: Yes Status: Acute Code(s): K57.92 - Diverticulitis of intestine, part unspecified, without perforation or abscess without bleeding Qualifiers: Diverticulitis site: large intestine Diverticulitis bleeding: without bleeding Diverticulitis complication: without perforation or abscess Qualified Code(s): K57.32 - Diverticulitis of large intestine without perforation or abscess without bleeding (2) Hypertension Current Visit: Yes Status: Chronic Code(s): I10 - Essential (primary) hypertension Qualifiers: Hypertension type: essential hypertension Qualified Code(s): I10 - Essential (primary) hypertension - Assessment / Plan Additional Assessment/Plan Details: Continue Invanz, day #2 today. Continue IV fluids, but lower rate. Continue diet at current diet. With continued nausea, think the patient still requires hospital stay for IV antibiotics. I don't believe that she will tolerate by mouth antibiotics at this point.
[2019-02-20] MEDS: Ertapenem Inj 1 GM in Sodium Chloride 0.9% 100 ML IV SCH (13:01)
[2019-02-21] MEDS: HYDROmorphone 2 MG/1 ML IVP PRN ×3 (01:25→11:34)
[2019-02-21] MEDS: ONDANSETRON 4 MG/2 ML VIAL IVP PRN ×3 (01:25→11:33)
[2019-02-21] MEDS: Sodium Chloride 0.9% 1,000 ML PRIMARY IV SCH (05:07)
[2019-02-21] MEDS: LISINOPRIL 5 MG TABLET PO SCH (09:00)
[2019-02-21] MEDS: ACETAMINOPHEN 325 MG TABLET PO PRN (09:08)
[2019-02-21] MEDS: Ertapenem Inj 1 GM in Sodium Chloride 0.9% 100 ML IV SCH (13:16)
--- NOTE | 2019-02-21 13:39 | PDOC(PROG) ---
Date of Service: 02/21/19 Time of Service: 13:30 Interval History: Very emotional today. Worried about her dog. Reports her pain is significantly improved. She is passing gas. No bowel movement. Tolerating clear liquids. We discussed increasing her diet but she would like to just go to full liquids at this time. Recommend starting a low residue diet starting tomorrow. I told the patient I doubt she'll need IV antibiotics after her fourth dose on Friday. I would recommend 10-14 days of Augmentin 875 mg by mouth twice a day. She will follow-up in my office in 3-4 weeks. We will consider a colonoscopy at that time. She should see me sooner if she has increased symptoms after stopping her oral antibiotics. Objective : Data - Labs CBC and BMP: 02/20/19 04:24 02/20/19 04:24 - Vital Signs Vital Signs and I&O: Vital Signs - Last Taken Temperature 98.5 F 02/21/19 11:22 Pulse Rate 76 02/21/19 11:22 Respiratory Rate 18 02/21/19 11:22 Blood Pressure 128/78 02/21/19 11:22 Pulse Ox 96 02/21/19 11:22 Intake and Output (24hr x 4 totals) 02/19/19 02/20/19 02/21/19 02/22/19 05:59 05:59 05:59 05:59 Intake Total 4942 / 4942 3581 / 3581 380 / 380 Output Total 2450 / 2450 2050 / 2050 2125 / 2125 Balance 2492 / 2492 1531 / 1531 -1745 / -1745 Objective : Exam - General General Appearance: Cooperative, Mild Distress (Mostly anxiety.), Obese - Respiratory Respiratory Exam: Clear to Auscultation - Bilaterally, Breathing Non Labored - Cardiovascular Cardiovascular Exam: RRR, No Murmur - GI/Abdominal GI/Abdominal Exam: Normal Bowel Sounds, Non Distended, Soft Additional GI/Abdominal Exam Details: Mild tenderness. Much less than on Friday when I last saw her. Assessment and Plan - Patient Problems (1) Acute diverticulitis Current Visit: Yes Status: Acute Priority: High Onset Date: 02/12/19 Comment: Improved. I think it is reasonable to discharge her home tomorrow after her fourth dose of IV antibiotics. I would increase her to a low residue diet. I would recommend 10-14 days of oral Augmentin, 875 mg by mouth twice a day. She should follow up in my office in 3-4 weeks. We'll consider colonoscopy at that time. Discussed in detail with the patient. At this time she agrees to that plan. Code(s): K57.92 - Diverticulitis of intestine, part unspecified, without perforation or abscess without bleeding
--- NOTE | 2019-02-21 14:29 | PDOC(PROG) ---
Date of Service: 02/21/19 Time of Service: 14:27 Interval History: patient seen, evaluated earlier today, also discussed with surgery. no chest pain, no shortness of breath. abdominal pain is improved, but still present. nausea is improved. Objective : Data - Labs CBC and BMP: 02/20/19 04:24 02/20/19 04:24 Objective : Exam - General General Appearance: No Acute Distress, Cooperative Additional General Exam Details: Vital Signs - Last Taken Temperature 98.5 F 02/21/19 11:22 Pulse Rate 76 02/21/19 11:22 Respiratory Rate 18 02/21/19 11:22 Blood Pressure 128/78 02/21/19 11:22 Pulse Ox 96 02/21/19 11:22 - Eye Eye Exam: No Scleral Icterus - ENT ENT Exam: Mucous Membranes Moist - Neck Neck Exam: JVP is not Raised - Respiratory Respiratory Exam: Clear to Auscultation - Bilaterally, Breathing Non Labored - Cardiovascular Cardiovascular Exam: RRR, No Murmur, No Clicks, No Gallops, No Rubs, No JVD - GI/Abdominal GI/Abdominal Exam: Normal Bowel Sounds, Non Tender, Non Distended, Soft - Extremities Extremities Exam: No Clubbing Present, No Edema Present, No Cyanosis Present - Neurological Neurological Exam: Alert, Oriented x 3, No Facial Droop, Speech Intact / Clear, Moves All Extremities Equally Assessment and Plan - Patient Problems (1) Diverticulitis Current Visit: Yes Status: Acute Code(s): K57.92 - Diverticulitis of intestine, part unspecified, without perforation or abscess without bleeding Qualifiers: Diverticulitis site: large intestine Diverticulitis bleeding: without bleeding Diverticulitis complication: without perforation or abscess Qualified Code(s): K57.32 - Diverticulitis of large intestine without pe rforation or abscess without bleeding (2) Hypertension Current Visit: Yes Status: Chronic Code(s): I10 - Essential (primary) hypertension Qualifiers: Hypertension type: essential hypertension Qualified Code(s): I10 - Essential (primary) hypertension (3) PTSD (post-traumatic stress disorder) Current Visit: No Status: Chronic Code(s): F43.10 - Post-traumatic stress disorder, unspecified - Assessment / Plan Additional Assessment/Plan Details: For my examination, the patient was quite tearful, expressed significant concern over potential of IV antibiotics as an outpatient in [place] as she has post trau matic stress disorder related to [facility] [place]. This is the patient's history. I think she would do okay on Augmentin, and surgery agrees. We will give the patient a dose of Invanz today for day #3 of antibiotics, repeat a dose of Invanz tomorrow, and hopefully discharge on 10-14 days of Augmentin tomorrow. Labs in a.m. Surgery follow-up in 3-4 weeks as already arranged.
[2019-02-21] MEDS: HYDROcodone-APAP 5 MG -325 MG TABLET PO PRN ×2 (14:54→19:22)
[2019-02-21 20:04] VITALS: RESP 16
[2019-02-22] MEDS: HYDROcodone-APAP 5 MG -325 MG TABLET PO PRN ×3 (00:09→13:09)
[2019-02-22 04:54] LABS: BASOPHILS # (AUTO) 0.06 10*3/UL; BASOPHILS % (AUTO) 1.1 % (0-1); EOSINOPHILS # (AUTO) 0.08 10*3/UL; EOSINOPHILS % (AUTO) 1.5 % (0-8); Hematocrit [HCT] 41.4 % (37.0-47.0); Hemoglobin [HGB] 13.6 g/dL (12.0-16.0); LYMPHOCYTES # (AUTO) 2.24 10*3/uL; MEAN CORPUSCULAR HEMOGLOBIN 29.2 PG (27-31); MEAN CORPUSCULAR HGB CONC 32.9 g/dL (33-37); MEAN PLATELET VOLUME 11.9 FL (7.4-12.2); MONOCYTES # (AUTO) 0.16 10*3/UL (0.3-0.8); MONOCYTES % (AUTO) 2.9 % (5-15); NEUTROPHILS # (AUTO) 2.88 10*3/UL; RED BLOOD COUNT 4.65 10^6/uL (4.20-5.40)
[2019-02-22 04:56] LABS: PLATELET MORPHOLOGY COMMENT NORMAL MORPHOLOGY (NORM); RBC MORPHOLOGY COMMENT NORMAL MORPHOLOGY (NORM); WBC MORPHOLOGY COMMENT NORMAL MORPHOLOGY (NORM)
[2019-02-22 05:01] LABS: BLOOD UREA NITROGEN 7 mg/dL (7-22)
[2019-02-22 07:46] VITALS: BP 125/90; TEMP 96.8; O2SAT 98
[2019-02-22] MEDS: LISINOPRIL 5 MG TABLET PO SCH (08:59)
[2019-02-22] MEDS: ONDANSETRON 4 MG/2 ML VIAL IVP PRN ×2 (09:03→13:09)
--- NOTE | 2019-02-22 12:00 | DCSUMMARY ---
Hospitalization Summary Admit Date: 02/19/2019 Discharge Date: 02/22/19 Primary Diagnosis:: diverticulitis Hospital Course: This very pleasant 43-year-old female with posterior medics stress disorder, hypertension, and history of diverticular disease status post partial colon resection with reanastomosis. The patient had had known diverticular inflammatory changes in diverticulitis over the last week, she was treating that with Cipro and Flagyl, but she develops severe worsening of her abdominal pain, nausea and vomiting, and could not keep her antibiotics down. She came in for evaluation in the emergency room here, CT scan showed worsening inflammatory changes and she is admitted on IV Invanz, initially clear liquid diet, and IV fluids. She gradually improved, and by the date of discharge was able to tolerate by mouth intake without nausea or vomiting and her pain was significantly improved. She was no longer requiring IV medications for pain. She stated that her gas was less painful. She denied any chest pain, shortness breath, nausea or vomiting on the date of discharge and was "ready to go home". Patient was co-managed with surgery and the plan is to complete 2 additional weeks of by mouth antibiotics and have the patient follow up in 4 weeks for planning of a possible colonoscopy down the road. She has a penicillin allergy so we will use Bactrim DS one tablet by mouth twice a day for the next 14 days. Assessment and Plan: 1. As per discharge assessments noted 2. Disposition: Patient is discharged home. 3. Condition on discharge, stable and improved. 4. Diet: regular diet 5. Activities: resume normal activities 6. Follow-Up: 1. See Dr. Brasher in 1 week to recheck 2. see Dr. Cifuentes on 03/15/2019 in order to reevaluate diverticular disease and consider possible colonoscopy. 7. Medications at the Time of Discharge: Home Medications Medication Instructions Recorded Confirmed Type Lisinopril 5 mg PO DAILY 02/06/19 02/19/19 History Amlodipine Besylate 2.5 mg PO DAILY 02/22/19 02/22/19 History Aspirin EC 81 mg PO DAILY 02/22/19 02/22/19 History HYDROcodone/APAP 5/325 Tab [[place] 1 - 2 tab PO Q4H PRN #30 tab 02/22/19 Rx 5/325 Tab] Polyvinyl Alcohol [Artificial 1 drp EACH EYE BID 02/22/19 02/22/19 History Tears] Sulfameth/Trimeth 800/160 Tab 1 ea PO BID #28 tab 02/22/19 Rx [Bactrim DS 800/160 Tab] 8. Time, care, counseling and coordination of care for this discharge is less than 30 minutes. Exam - Vitals Vital Signs: Vital Signs Temperature 96.8 F Temperature Source Temporal Artery Scan Pulse Rate [Pulse Oximeter 62 Left] Respiratory Rate 16 Blood Pressure [Right Arm] 125/90 Blood Pressure [Left Arm] 114/61 Pulse Ox 98 Oxygen Delivery Method Room Air Height 5 ft 4 in Weight 215 lb - General General Appearance: No Acute Distress, Cooperative - Eye Eye Exam: POSITIVE: No Scleral Icterus - ENT ENT Exam: POSITIVE: Mucous Membranes Moist - Neck Neck Exam: JVP is not Raised - Respiratory Respiratory Exam: POSITIVE: Clear to Auscultation - Bilaterally, Breathing Non Labored - Cardiovascular Cardiovascular Exam: POSITIVE: RRR, No Murmur, No Clicks, No Gallops, No Rubs, No JVD - GI/Abdominal GI/Abdominal Exam: POSITIVE: Normal Bowel Sounds, Non Tender, Non Distended, Soft - Extremities Extremities Exam: POSITIVE: No Clubbing Present, No Edema Present, No Cyanosis Present - Neurological Neurological Exam: POSITIVE: Alert, Oriented x 3, No Facial Droop, Speech Intact / Clear, Moves All Extremities Equally Data Peritnent Studies: 02/19/19 02/19/19 02/20/19 10:48 10:50 04:24 WBC 11.48 H Hgb Hct Plt Count Sodium Potassium Chloride Carbon Dioxide Anion Gap BUN Creatinine BUN/Creatinine Ratio Glucose Calculated Osmolality Calcium Total Bilirubin 0.3 AST 35 ALT 33 Alkaline Phosphatase 99 Total Protein 6.8 Albumin 3.9 Globulin 2.9 Albumin/Globulin Ratio 1.30 Ur Culture Indicated? Culture not set 02/22/19 02/22/19 04:21 04:21 WBC 5.43 Hgb 13.6 Hct 41.4 Plt Count 205 Sodium 139 Potassium 4.0 Chloride 105 Carbon Dioxide 26 Anion Gap 8 BUN 7 Creatinine 1.0 BUN/Creatinine Ratio 7.00 Glucose 110 Calculated Osmolality 286.0 Calcium 9.3 Total Bilirubin AST ALT Alkaline Phosphatase Total Protein Albumin Globulin Albumin/Globulin Ratio Ur Culture Indicated? Procedures: [address] [facility] [place] [id number] PH: DD: [phone] FAX: [phone] ~DIAGNOSTIC IMAGING REPORT~ Patient: MARCELLUS VELASQUEZ : 1975 Sex: F Age: 43 Exam Name: CT Abdomen/Pelvis W Contrast Exam Date: 02/19/19 Report # : [id number] CPT Code: 84974 EMR/MR #: [id number] Ordering: KENNEDY FALLON Admiting: Primary: RAY BRASHER MD. Attending: Signed CT ABDOMEN SCAN WITH IV CONTRAST, 02/19/2019 10:49 AM : Clinical History: Abdominal pain. Previous bowel resection for diverticulitis. Patient recently seen at an outside facility and is being treated for acute diverticulitis. Previous Exam: 05/09/2017. Comparison is made with the most recent study from [facility] [place] [facility] [place], [place] dated 02/12/2019. IV Contrast: 75 mL of Isovue 300. Oral Contrast: No oral contrast ordered. Rectal Contrast: No rectal contrast ordered. Lungs: No infiltrate or effusion. Liver: Moderate hepatomegaly with diffuse fatty infiltration. Gallbladder: Status post cholecystectomy. Common bile duct measures 5-6 mm. Adrenal Glands: Normal. Spleen: Normal. Pancreas: Normal. Kidneys: Normal size, shape, position and contour. No hydronephrosis or hydroureter. No renal or ureteral calculi. Masses: None. Lymph Nodes: Normal. Ascites: No ascites. Free Air: None. Spine: Normal lower thoracic and lumbar spine. READING: Moderate hepatomegaly with diffuse fatty infiltration. The remainder of the study is normal. CT PELVIS SCAN WITH IV CONTRAST, 02/19/2019 10:49 AM: Clinical History: See above. Previous Exam: None at this facility. Contrast: Same bolus used for CT scans of the abdomen. Masses: No masses or enhancing lesions. Ascites: None. Free Air: None. Lymph Nodes: No adenopathy. Appendix: Not identified. No cecal or right lower quadrant inflammatory mass. Small Bowel: Normal small bowel, terminal ileum, and ileocecal valve. Colon: The cecum lies in the pelvis and has a normal appearance. In the distal descending colon, there is localized enhancement of the mucosa along with wall thickening and periserosal inflammatory/infiltrative change. Review of the previous study from 02/12/2019 shows that the same area there we had any periserosal inflammatory change indicating this is a substantial degree of worsening. No abscess cavity is visualized. Status post sigmoid colon resection with end-to-end anastomosis. Uterus: Status post hysterectomy. Ovaries: Status post bilateral salpingo-oophorectomy. Bladder: Almost completely empty but unremarkable. Hernias: None. Bony Pelvis: Normal sacrum, pelvic bones, and hips. READING: There is evidence of inflammatory change involving the distal portion of the descending colon with enhancement of the mucosa and thickening of the wall and periserosal inflammatory/infiltrative change. There is no associated abscess. With the history of prior colon surgery for diverticulitis, this would be consistent with acute diverticulitis it has become worse since 02/12/2019. Dictated By: 02/19/19 1307 EVGENY PAYTON MD. Signed By: 02/19/19 1322 EVGENY PAYTON MD. Patient Problems - Patient Problem List (1) Diverticulitis Current Visit: Yes Status: Acute Code(s): K57.92 - Diverticulitis of intestine, part unspecified, without perforation or abscess without bleeding Qualifiers: Diverticulitis site: large intestine Diverticulitis bleeding: without bleeding Diverticulitis complication: without perforation or abscess Qualified Code(s): K57.32 - Diverticulitis of large intestine without perforation or abscess without bleeding Category: Medical (2) Hypertension Current Visit: Yes Status: Chronic Comment: Blood pressure numbers are acceptable will continue the current dosage we may increase the lisinopril tomorrow if her blood pressure gets higher. Code(s): I10 - Essential (primary) hypertension Qualifiers: Hypertension type: essential hypertension Qualified Code(s): I10 - Essential (primary) hypertension Category: Medical (3) PTSD (post-traumatic stress disorder) Current Visit: No Status: Chronic Comment: Does not appear to be an active issue right now, continue to observe. Code(s): F43.10 - Post-traumatic stress disorder, unspecified Category: Medical
[2019-02-22] MEDS: Ertapenem Inj 1 GM in Sodium Chloride 0.9% 100 ML IV SCH (12:06)
== END 2019-02-22 13:45 | disposition home or self-care (01) | DRG 392 ==
LOC: ER 10:32 → MED/SURG 13:38
PROVIDERS: ADMIT Family Medicine; ATTEND Family Medicine

== ENCOUNTER 2019-07-02 23:02 | Inpatient (IN) ==
[2019-07-02] MEDS ORDERED: HYDROmorphone 2 MG/1 ML IVP ONE (23:23)
[2019-07-02] MEDS ORDERED: ONDANSETRON 4 MG/2 ML VIAL IVP ONE (23:23)
[2019-07-02] MEDS ORDERED: Sodium Chloride 0.9% 1,000 ML PRIMARY IV ONE (23:23)
[2019-07-03 00:03] LABS: BASOPHILS # (AUTO) 0.05 10*3/UL; BASOPHILS % (AUTO) 0.3 % (0-1); EOSINOPHILS # (AUTO) 0.05 10*3/UL; EOSINOPHILS % (AUTO) 0.3 % (0-8); Hematocrit [HCT] 45.1 % (37.0-47.0); Hemoglobin [HGB] 14.6 g/dL (12.0-16.0); LYMPHOCYTES # (AUTO) 2.37 10*3/uL; MEAN CORPUSCULAR HGB CONC 32.4 g/dL (33-37); MEAN PLATELET VOLUME 11.7 FL (7.4-12.2); MONOCYTES # (AUTO) 1.06 10*3/UL (0.3-0.8); MONOCYTES % (AUTO) 7.2 % (5-15); NEUTROPHILS # (AUTO) 11.18 10*3/UL; NEUTROPHILS % (AUTO) 75.8 % (50-80)
[2019-07-03 00:04] LABS: PLATELET MORPHOLOGY COMMENT NORMAL MORPHOLOGY (NORM); RBC MORPHOLOGY COMMENT NORMAL MORPHOLOGY (NORM); WBC MORPHOLOGY COMMENT NORMAL MORPHOLOGY (NORM)
[2019-07-03 00:10] LABS: BLOOD UREA NITROGEN 18 mg/dL (7-22)
--- NOTE | 2019-07-03 00:26 | PDOC ---
Abdomen/Flank HPI - General Chief Complaint: Abdomen Pain Stated Complaint: LEFT ABDOMEN PAIN Date Seen by Provider: 07/02/19 Time Seen by Provider: 23:10 Source: POSITIVE: Patient Exam Limitations: POSITIVE: No limitations Nurse's Notes Reviewed & Considered: Yes - History of Present Illness Initial Comments: The patient is a 43-year-old female who presents to the emergency room with complaints of abdominal pain. She has a history of recurrent diverticulitis. She actually had a partial bowel resection done here in 2014. She also had developed sigmoid diverticulitis earlier this year and failed outpatient treatment and subsequently required inpatient treatment with IV antibiotics. This episode did resolve. She reports that over the past 24 hours she has not felt well in general. She has developed progressively worsening pain in the left lower abdomen associated with nausea and dry heaves. She also has had some subjective fevers and sweats. She also reports that she has not had any significant bowel movement today. She reports that her current pain is similar to diverticulitis that she has experienced previously however her current pain is worse. - Patient Home Medications Home Medications: Home Medications NK 07/03/19 - Patient Allergies Allergies/Adverse Reactions: Allergies Allergy/AdvReac Type Severity Reaction Status Date / Time morphine Allergy Severe BLACK OUT Verified 07/03/19 02:34 Penicillins Allergy Severe Anaphylaxis Verified 07/03/19 02:34 fentanyl Allergy NOT Verified 07/03/19 02:34 APPLICABLE topomax Allergy Intermediate NOT Uncoded 07/03/19 02:35 APPLICABLE Past Medical History - heen HEENT History: Dentures/Partials Additional HEENT History: Upper and lower dentures Cardiovascular History: Denies History, Other (please comment) Additional Cardiovasular History: LEAKY HEART VALVE/ MURMUR. Denies HTN.DVT Respiratory History: Asthma, Sleep Apnea, Home CPAP Use, Snoring Additional Respiratory History: "SMOKERS COUGH". Gastrointestinal History: GERD, Diverticulitis Additional Gastrointestinal History: ULCER/Had hemicolectomy which took care of the diverticulitis Genitourinary History: Denies History, Other (please comment) Additional Genitourinary History: Fatty Liver Endocrine History: Layton's Disease Musculoskeletal History: Fibromyalgia, Back Pain, Joint Pain Prosthesis or Implant: No Additional Musculoskeletal History: CERVICAL SPONDYLOSIS/ LUMBAR DDD. 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 History of Sexually Transmitted Diseases: No Cancer History: Denies History History of MDRO: No History of Other Communicable Diseases: No Alcohol Use: Occasionally In the Past 12 Months, Have Used or Abuse Any Substance: None Previous Surgical History: Yes Type / Date of Surgery: HYST/BSO/ COLONOSCOPY/ EGD/ TUBAL/ DENTAL sx for dentures/Maryjane/ B CTR/Lasix Bilat/Lumbar Puncture/Hemicolectomy Anesthesia Reactions: No Malignant Hyperthermia: No Significant Family History: Asthma, Heart disease, Cancer, Diabetes, Hypertension, Lung disease Past Medical History Reviewed: Reviewed - No Changes ROS - Limitations ROS Limitations: No Limitations Constitution: REPORTS: Chills, Fever (Subjective) Cardiovascular: REPORTS: Denies Cardiac Symptoms Respiratory: REPORTS: Denies Resp Symptoms Neurological: REPORTS: Denies Neuro Symptoms Gastrointestinal: REPORTS: Abdominal Pain, Nausea, Vomitting, Other (Loose stool, only a small amount of bowel movement out today). DENIES: Black Stools, Bloody Stools Endocrine: REPORTS: Denies Symptoms Genitourinary: REPORTS: Denies Symptoms, Other (She reports diminished urination over the past 24 hours and thinks she might be dehydrated) Eyes: REPORTS: Denies Symptoms ENT: REPORTS: Denies Symptoms Skin: DENIES: Rash Abdominal/Flank Pain PE - General Appearance General Appearance: POSITIVE: Alert, Cooperative, No Acute Distress - HEENT HEENT: POSITIVE: Head Inspection Nml, Eyes Inspection Nml, Ears Inspection Nml, Nose Inspection Nml, Pharynx Inspect. Nml - Respiratory Respiratory: POSITIVE: No Respiratory Distress, Breath Sounds Normal - Cardiovascular Cardiovascular: POSITIVE: Regular Rate and Rhythm, Heart Sounds Normal - Abdomen Abdomen: Soft: (All Quadrants), Normal Bowel Sounds: (All Quadrants), No [place] Mass: (All Quadrants) Additional Abdominal Details: She does have tenderness primarily in the left upper quadrant without guarding or rebound tenderness, no palpable mass - Back Back: POSITIVE: Normal Inspection - Skin Skin: POSITIVE: Intact, No Rash - Extremities Extremity: Normal ROM: (All Extremities), Normal Inspection: (All Extremities) - Neurological Neurological: POSITIVE: Oriented X3, 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 Lab Results Reviewed by Me: Yes CBC and BMP: 07/02/19 23:45 07/02/19 23:45 Lab Results:: Laboratory Results 07/02/19 07/02/19 07/02/19 23:45 23:45 23:45 WBC 14.75 H RBC 4.90 Hgb 14.6 Hct 45.1 MCV 92.0 MCH 29.8 MCHC 32.4 L RDW Std Deviation 46.2 RDW Coeff of Kuldeep 13.9 Plt Count 206 MPV 11.7 Immature Gran % (Auto) 0.3 Neut % (Auto) 75.8 Lymph % (Auto) 16.1 [place] % (Auto) 7.2 Eos % (Auto) 0.3 Baso % (Auto) 0.3 Immature Gran # (Auto) 0.04 Neut # (Auto) 11.18 Lymph # (Auto) 2.37 [place] # (Auto) 1.06 H Eos # (Auto) 0.05 Baso # (Auto) 0.05 WBC Morphology Comment Normal morphology Plt Morphology Comment Normal morphology RBC Morph Comment Normal morphology Sodium 143 Potassium 4.0 Chloride 106 Carbon Dioxide 24 Anion Gap 13 BUN 18 Creatinine 1.0 Estimated GFR > 60 BUN/Creatinine Ratio 18.00 Glucose 127 H Calculated Osmolality 299.0 H Lactic Acid Calcium 10.1 Magnesium 2.2 Total Bilirubin 0.8 AST 31 ALT 22 Alkaline Phosphatase 102 C-Reactive Protein 3.4 H Total Protein 9.0 H Albumin 5.0 H Globulin 4.0 Albumin/Globulin Ratio 1.20 L Amylase 76 Lipase 95 Serum HCG, Qual Negative 07/02/19 23:55 WBC RBC Hgb Hct MCV MCH MCHC RDW Std Deviation RDW Coeff of Kuldeep Plt Count MPV Immature Gran % (Auto) Neut % (Auto) Lymph % (Auto) [place] % (Auto) Eos % (Auto) Baso % (Auto) Immature Gran # (Auto) Neut # (Auto) Lymph # (Auto) [place] # (Auto) Eos # (Auto) Baso # (Auto) WBC Morphology Comment Plt Morphology Comment RBC Morph Comment Sodium Potassium Chloride Carbon Dioxide Anion Gap BUN Creatinine Estimated GFR BUN/Creatinine Ratio Glucose Calculated Osmolality Lactic Acid 1.0 Calcium Magnesium Total Bilirubin AST ALT Alkaline Phosphatase C-Reactive Protein Total Protein Albumin Globulin Albumin/Globulin Ratio Amylase Lipase Serum HCG, Qual - Patient's Progress MDM / ED Course: An IV was established, blood cultures and lactate were drawn with initial IV start. The patient's blood work reveals an elevated white count of 14.5 with a CRP of 3.4. The remainder of her blood work is essentially unremarkable. CT scan of her abdomen and pelvis with IV contrast to show inflammatory change in the transverse colon consistent with acute diverticulitis per radiologistAyan bridges findings were discussed with the patient. The patient has a history of recurrent diverticulitis and had a failed outpatient treatment earlier this year. The patient does not have a surgical abdomen on exam. Decision was made to treat aggressively with IV antibiotics especially given her history and current clinical presentation. The patient was started on Invanz 1 g IV. These findings and recommendations were discussed with the patient and she is in agreement with this plan. Dr. El has agreed to admit the patient. Surgical consultation will be obtained in the morning. - Consult Counseled: POSITIVE: Patient, RE: Lab Results, RE: Radiology Results, RE: DX, RE: Need for F/U Patient Care Time - Estimated PCT Patient Care Time (In Minutes): 30 Vital Signs - VS Reviewed Vital Signs Reviewed: Yes Discharge Clinical Impression: Acute diverticulitis Discharge Disposition: Admit to Inpatient Condition: Fair Patient Problem(s) Reviewed: Yes Date Decision to Admit to Inpatient: 07/03/19 Time Decision to Admit to Inpatient: 02:00
--- NOTE | 2019-07-03 01:34 | DI ---
EXAM: CT Abdomen and Pelvis With Intravenous Contrast CLINICAL HISTORY: ITS.REASON Abdominal Pain Physician Notes: Tech Comments: TECHNIQUE: Axial computed tomography images of the abdomen and pelvis with intravenous contrast. COMPARISON: No relevant prior studies available. FINDINGS: Lung bases: Unremarkable. No mass. No consolidation. ABDOMEN: Liver: Unremarkable. No mass. Gallbladder and bile ducts: No abnormal ductal dilation or stones. Pancreas: Unremarkable. No mass. No ductal dilation. Spleen: Unremarkable. No splenomegaly. Adrenals: Unremarkable. No mass. Kidneys and ureters: Unremarkable. No solid mass. No hydronephrosis. Stomach and bowel: Acute diverticulitis of the distal transverse colon. PELVIS: Appendix: No findings to suggest acute appendicitis. Bladder: Unremarkable. No mass. Reproductive: Hysterectomy ABDOMEN and PELVIS: Intraperitoneal space: Unremarkable. No free air. No significant fluid collection. Bones/joints: No acute fracture. No dislocation. Soft tissues: Unremarkable. Vasculature: No abdominal aortic aneurysm. Lymph nodes: Unremarkable. No enlarged lymph nodes. IMPRESSION: Acute diverticulitis of the distal transverse colon.
[2019-07-03] MEDS ORDERED: Ertapenem Inj 1 GM in Sodium Chloride 0.9% 100 ML IV ONE (01:49)
[2019-07-03] MEDS ORDERED: LIDOCAINE W/ SODIUM BICARB 0.5 ML SYR SUBD PRN (02:50)
[2019-07-03] MEDS ORDERED: CALCIUM CARBONATE 500 MG (TUMS) CHEWABLE TABLET PO PRN (02:50)
[2019-07-03] MEDS ORDERED: DOCUSATE 100 MG CAPSULE PO PRN (02:50)
[2019-07-03] MEDS ORDERED: ACETAMINOPHEN 325 MG TABLET PO PRN (02:50)
[2019-07-03] MEDS: ONDANSETRON 4 MG/2 ML VIAL IVP PRN ×5 (03:15→19:25)
[2019-07-03] MEDS: HYDROmorphone 2 MG/1 ML IVP PRN ×6 (03:15→19:23)
[2019-07-03] MEDS: Lactated Ringers 1,000 ML PRIMARY IV SCH ×3 (03:30→19:33)
--- NOTE | 2019-07-03 06:50 | PDOC ---
HPI - History of Present Illness Date of Service: 07/03/19 Time of Service: 07:00 Chief Complaint: Abdominal pain of 2 days' duration History of Present Illness: This is a 43 years old female with medical history significant for history of diverticular disease that was complicated by diverticulitis, she had sigmoid resection with reanastomosis in 2014, she was admitted February this year for diverticulitis of the distal descending colon and was treated medically, who presented to the hospital with history of abdominal pain of 2 days' duration. Progressively yesterday the pain got worse gradually. The pain felt in the side of the abdomen associated with the nausea and dry heaving. There was no diarrhea she said she had a small bowel movement last night after she came into the ER. The pain is similar to what she had before in the past. Evaluation in the ER revealed elevated white count and a CT of the abdomen showed diverticulitis of the distal portion of the transverse colon. She was given fluids, pain medication and Invanz was admitted. Her pain this morning is better than when she came in. Past Medical History Medical History: 1. Coronary artery disease, nonobstructive enough for stent placement. 2. Hypertension, was on medication but she said it was discontinued. 3. Diverticular disease status post surgery in 2014. 4. History of adrenal insufficiency, she said she is not on hydrocortisone anymore . This was discontinued last year. 5. History of intracranial hypertension with previous LPs before. 6. Admission for diverticulitis in February 2019 was treated medically. 7. History of leaky valve according to her being followed up by Dr. blanc. Surgical History: 1. Total hysterectomy. 2. Cyst rupture. 3. Bilateral carpal tunnel. 4. Colon resection, partial, related to diverticular disease. 5. Multiple lumbar punctures. 6. Multiple colonoscopies-- last August 2017. 7. Status post laparoscopic cholecystectomy Pertinent Family History: She states that she had a relative of diverticular disease complications. Her sister has had coronary artery disease and heart valve replacement Past Social History: Quit smoking in 2013. Rarely drinks alcohol. Lives in [place], [place]. Has 2 children but she states they are having some digestive issues. Occasionally smoke pot. Tobacco Use: Former Smoker Do you dip or chew tobacco: No In the Past 12 Months, Have Used or Abuse Any of the Following Substance: Marijuana Medication / Allergies Home Medications: Home Medications Medication Instructions Recorded Confirmed NK 07/03/19 07/03/19 Allergies/Adverse Reactions: Allergies Allergy/AdvReac Type Severity Reaction Status Date / Time morphine Allergy Severe BLACK OUT Verified 07/03/19 06:46 Penicillins Allergy Severe Anaphylaxis Verified 07/03/19 06:46 fentanyl Allergy NOT Verified 07/03/19 06:46 APPLICABLE topomax Allergy Intermediate NOT Uncoded 07/03/19 02:35 APPLICABLE Review of Systems - Review of Systems All Systems: Reviewed & No Additional Complaints Except as Stated Exam - Vitals Vital Signs: Vital Signs Temperature 97.1 F Temperature Source Temporal Artery Scan Pulse Rate [Pulse Oximeter] 66 Pulse Rate [right hand] 68 Pulse Rate 79 Respiratory Rate 20 Blood Pressure [Left Arm] 153/82 Blood Pressure 126/82 Pulse Ox [right hand] 98 Pulse Ox 97 Oxygen Flow Rate [right hand] 2 Oxygen Delivery Method [right Nasal Cannula hand] Oxygen Delivery Method Room Air Height 5 ft 4 in Weight 203 lb 9.6 oz - General General Appearance: No Acute Distress, Cooperative - Head Head Exam: Normal Inspection - Eye Eye Exam: POSITIVE: Normal Appearance - ENT ENT Exam: POSITIVE: Normal Exam - Neck Neck Exam: Normal Inspection - Respiratory Respiratory Exam: POSITIVE: Clear to Auscultation - Bilaterally - Cardiovascular Cardiovascular Exam: POSITIVE: RRR - GI/Abdominal GI/Abdominal Exam: POSITIVE: Normal Bowel Sounds, Non Distended, Soft, No Organomegaly Additional GI/Abdominal Exam Details: No some tenderness in the left part of the abdomen mainly in the midportion of the left side of the abdomen. - Rectal Rectal Exam: POSITIVE: Deferred - External Exam: POSITIVE: Deferred - Extremities Extremities Exam: POSITIVE: Normal Inspection - Back Back Exam: POSITIVE: Normal Inspection - Neurological Neurological Exam: POSITIVE: Alert, Oriented x 3, CN II-XII Intact, No Facial Droop, Speech Intact / Clear, Moves All Extremities Equally - Psychiatric Psychiatric Exam: POSITIVE: Normal Affect - Integumentary Integumentary Exam: POSITIVE: Normal Color Results - Labs CBC and BMP: 07/02/19 23:45 07/02/19 23:45 Assessment and Plan - Patient Problems (1) Acute diverticulitis Current Visit: Yes Status: Acute Priority: High Onset Date: 02/12/19 Comment: She was started on Invanz and will continue with it, wrote for pain medication and antibiotics. Will discuss with surgery. Code(s): K57.92 - Diverticulitis of intestine, part unspecified, without perforation or abscess without bleeding
[2019-07-03] MEDS ORDERED: AmLODIPine Tab 2.5 MG TABLET PO SCH (09:00)
[2019-07-03] MEDS ORDERED: LISINOPRIL 5 MG TABLET PO SCH (09:00)
[2019-07-03 09:34] LABS: BILIRUBIN,URINE NEGATIVE (NEG); CLARITY,URINE CLEAR (CLEAR); COLOR,URINE YELLOW (Y); GLUCOSE, URINE (UA) NEGATIVE (NEG); OCCULT BLOOD,URINE NEGATIVE (NEG); PH,URINE 5.5 (5.0-8.5); PROTEIN,URINE NEGATIVE (NEG); URINE SAMPLE TYPE CLEAN CATCH URINE; UROBILINOGEN,URINE 0.2 EU/dL (0.2)
[2019-07-03 09:35] LABS: AMPHETAMINE SCREEN NEGATIVE (NEG); CANNABINOID SCREEN,URINE POSITIVE (NEG); COCAINE SCREEN NEGATIVE (NEG); METHADONE URINE SCREEN NEGATIVE (NEG); METHAMPHETAMINES SCREEN,URINE NEGATIVE (NEG); OPIATE SCREEN,URINE POSITIVE (NEG); URINE SAMPLE TYPE CLEAN CATCH URINE; URINE SPECIFIC GRAVITY - MAN 1.037
[2019-07-03] MEDS: HYDROcodone-APAP 5 MG -325 MG TABLET PO PRN ×3 (11:56→21:07)
[2019-07-04] MEDS: ONDANSETRON 4 MG/2 ML VIAL IVP PRN ×4 (00:38→12:45)
[2019-07-04] MEDS: HYDROmorphone 2 MG/1 ML IVP PRN ×7 (00:38→23:56)
[2019-07-04] MEDS: HYDROcodone-APAP 5 MG -325 MG TABLET PO PRN ×2 (01:21→05:53)
[2019-07-04] MEDS: Ertapenem Inj 1 GM in Sodium Chloride 0.9% 100 ML IV SCH (01:23)
[2019-07-04] MEDS ORDERED: HYDROmorphone 2 MG/1 ML IVP ONE (01:38)
[2019-07-04] MEDS: Lactated Ringers 1,000 ML PRIMARY IV SCH ×3 (04:35→19:45)
[2019-07-04 04:50] LABS: BASOPHILS # (AUTO) 0.03 10*3/UL; BASOPHILS % (AUTO) 0.4 % (0-1); EOSINOPHILS # (AUTO) 0.09 10*3/UL; EOSINOPHILS % (AUTO) 1.2 % (0-8); Hematocrit [HCT] 40.6 % (37.0-47.0); LYMPHOCYTES # (AUTO) 1.38 10*3/uL; MEAN CORPUSCULAR VOLUME 93.8 FL (81-99); MEAN PLATELET VOLUME 11.3 FL (7.4-12.2); MONOCYTES # (AUTO) 0.55 10*3/UL (0.3-0.8); MONOCYTES % (AUTO) 7.6 % (5-15); NEUTROPHILS # (AUTO) 5.22 10*3/UL; NEUTROPHILS % (AUTO) 71.7 % (50-80); RED BLOOD COUNT 4.33 10^6/uL (4.20-5.40)
[2019-07-04 04:51] LABS: PLATELET MORPHOLOGY COMMENT NORMAL MORPHOLOGY (NORM); RBC MORPHOLOGY COMMENT NORMAL MORPHOLOGY (NORM); WBC MORPHOLOGY COMMENT NORMAL MORPHOLOGY (NORM)
[2019-07-04 05:15] LABS: BLOOD UREA NITROGEN 9 mg/dL (7-22); BUN/CREATININE RATIO 11.25 (6-20); SERUM ALBUMIN 3.7 g/dL (3.5-4.8)
[2019-07-04] MEDS ORDERED: oxyCODONE IR Tab 5 MG TAB PO PRN (07:22)
--- NOTE | 2019-07-04 08:02 | PDOC(PROG) ---
Date of Service: 07/04/19 Time of Service: 07:30 Interval History: Subjective Patient had worsening pain according to her overnight she needed extra dose of Dilaudid and that seemed to help her pain. She said she vomited last night also. But pain is better controlled this morning. Objective : Data - Labs CBC and BMP: 07/04/19 04:20 07/04/19 04:20 Objective : Exam - General General Appearance: No Acute Distress, Cooperative - Head Head Exam: Normal Inspection - Eye Eye Exam: Normal Appearance - ENT ENT Exam: Normal Exam - Neck Neck Exam: Normal Inspection - Respiratory Respiratory Exam: Clear to Auscultation - Bilaterally - Cardiovascular Cardiovascular Exam: RRR - GI/Abdominal GI/Abdominal Exam: Normal Bowel Sounds, Non Distended, Soft Additional GI/Abdominal Exam Details: There is some tenderness is still in the left side of the abdomen abdomen still soft. - Rectal Rectal Exam: Deferred - External Exam: Deferred - Extremities Extremities Exam: Normal Inspection - Back Back Exam: Normal Inspection - Neurological Neurological Exam: Alert, Oriented x 3, CN II-XII Intact, No Facial Droop, Speech Intact / Clear, Moves All Extremities Equally - Psychiatric Psychiatric Exam: Normal Affect Assessment and Plan - Patient Problems (1) Acute diverticulitis Current Visit: Yes Status: Acute Priority: High Onset Date: 02/12/19 Comment: She had some worsening pain last night and she vomited but pain seemed to be better this morning. I think we'll continue IV antibiotics continue fluid. if she reports worsening pain may repeat her CAT scan tomorrow. The good thing is her white count is normalized. Slight elevation in LFTs will get rid of the Tylenol and use oxycodone instead of hydrocodone. Code(s): K57.92 - Diverticulitis of intestine, part unspecified, without perforation or abscess without bleeding
[2019-07-04] MEDS: oxyCODONE IR Tab 5 MG TAB PO PRN ×4 (10:26→23:56)
[2019-07-05] MEDS: Ertapenem Inj 1 GM in Sodium Chloride 0.9% 100 ML IV SCH (02:38)
[2019-07-05] MEDS: ONDANSETRON 4 MG/2 ML VIAL IVP PRN ×5 (03:28→18:41)
[2019-07-05] MEDS: HYDROmorphone 2 MG/1 ML IVP PRN ×6 (03:31→21:34)
[2019-07-05] MEDS: oxyCODONE IR Tab 5 MG TAB PO PRN ×5 (04:02→21:34)
[2019-07-05] MEDS: Lactated Ringers 1,000 ML PRIMARY IV SCH ×3 (04:07→21:35)
[2019-07-05 04:33] LABS: BASOPHILS # (AUTO) 0.03 10*3/UL; BASOPHILS % (AUTO) 0.4 % (0-1); EOSINOPHILS # (AUTO) 0.09 10*3/UL; EOSINOPHILS % (AUTO) 1.2 % (0-8); Hematocrit [HCT] 41.2 % (37.0-47.0); Hemoglobin [HGB] 13.6 g/dL (12.0-16.0); LYMPHOCYTES # (AUTO) 1.62 10*3/uL; MEAN CORPUSCULAR VOLUME 92.8 FL (81-99); MEAN PLATELET VOLUME 11.5 FL (7.4-12.2); MONOCYTES # (AUTO) 0.63 10*3/UL (0.3-0.8); MONOCYTES % (AUTO) 8.7 % (5-15); NEUTROPHILS % (AUTO) 67.3 % (50-80); RED BLOOD COUNT 4.44 10^6/uL (4.20-5.40)
[2019-07-05 04:34] LABS: PLATELET MORPHOLOGY COMMENT NORMAL MORPHOLOGY (NORM); RBC MORPHOLOGY COMMENT NORMAL MORPHOLOGY (NORM); WBC MORPHOLOGY COMMENT NORMAL MORPHOLOGY (NORM)
[2019-07-05 04:49] LABS: BLOOD UREA NITROGEN 8 mg/dL (7-22); SERUM ALBUMIN 4.2 g/dL (3.5-4.8)
--- NOTE | 2019-07-05 08:01 | PDOC(PROG) ---
Date of Service: 07/05/19 Time of Service: 08:00 Interval History: Subjective She said she thought that she was making progress during the day time yesterday until last night when she started to feel nauseated and apparently she did not receive the Zofran so she said she vomited and she is having pain. she is anxious and upset. She did not have a bowel movement she said yet. Objective : Data - Labs CBC and BMP: 07/05/19 04:10 07/05/19 04:10 Objective : Exam - General Additional General Exam Details: She was emotional during the interview - Head Head Exam: Normal Inspection - Eye Eye Exam: Normal Appearance - ENT ENT Exam: Normal Exam - Neck Neck Exam: Normal Inspection - Respiratory Respiratory Exam: Clear to Auscultation - Bilaterally - Cardiovascular Cardiovascular Exam: RRR - GI/Abdominal GI/Abdominal Exam: Normal Bowel Sounds, Non Distended, Soft, No Organomegaly Additional GI/Abdominal Exam Details: Abdomen is still soft there is still tenderness in the left upper quadrant area - Rectal Rectal Exam: Deferred - External Exam: Deferred - Extremities Extremities Exam: Normal Inspection - Back Back Exam: Normal Inspection - Neurological Neurological Exam: Alert, Oriented x 3, CN II-XII Intact, No Facial Droop, Speech Intact / Clear, Moves All Extremities Equally - Psychiatric Psychiatric Exam: Anxious - Integumentary Integumentary Exam: Normal Color Assessment and Plan - Patient Problems (1) Acute diverticulitis Current Visit: Yes Status: Acute Priority: High Onset Date: 02/12/19 Comment: I think we'll continue current antibiotics, continue IV fluids. I did offer her to repeat CAT scan after discussing that with her in the end we decided to wait until afternoon and see how she feels if she continued to have symptoms we will repeat the CAT scan. I did tell her the whole idea of repeating the CAT scan to see if there is evidence for any complications. The fact that her white count is normal and she is not tachycardic and no fever argues against complications. Code(s): K57.92 - Diverticulitis of intestine, part unspecified, without perforation or abscess without bleeding (2) Abnormal LFTs Current Visit: Yes Status: Acute Comment: Reason is not clear, I did stop the Tylenol component present in the hydrocodone and put her on oxycodone. We'll order ultrasound of her liver. Will order hepatitis screen. Did look if Invanz causes any abnormalities there is some report of asymptomatic elevation in LFTs, I think we'll keep an eye on it repeat her labs and then decide if we need to switch antibiotics. Code(s): R94.5 - Abnormal results of liver function studies
--- NOTE | 2019-07-05 14:27 | DI ---
RIGHT UPPER QUADRANT ULTRASOUND, 07/05/2019 7:48 AM: Clinical History: Abnormal LFTs. Previous Exam: 10/19/2015. Technique: Right upper quadrant scanned in multiple projections with Color Doppler ultrasound. Liver Texture: Diffuse fatty infiltration. Liver Size: Hepatomegaly. 177 mm. Gallbladder: Status post cholecystectomy. Common Bile Duct: 5 mm. Pancreas: Normal head, neck, and body. Right Kidney: Normal right kidney. IVC and Aorta: Normal IVC and aorta. READING: Hepatomegaly with diffuse fatty infiltration of the liver.
[2019-07-06] MEDS: ONDANSETRON 4 MG/2 ML VIAL IVP PRN ×2 (00:07→04:02)
[2019-07-06] MEDS: HYDROmorphone 2 MG/1 ML IVP PRN ×2 (00:07→04:02)
[2019-07-06] MEDS: Ertapenem Inj 1 GM in Sodium Chloride 0.9% 100 ML IV SCH (01:56)
[2019-07-06] MEDS: oxyCODONE IR Tab 5 MG TAB PO PRN ×4 (01:56→14:00)
[2019-07-06 05:12] LABS: BLOOD UREA NITROGEN 9 mg/dL (7-22); SERUM ALBUMIN 4.1 g/dL (3.5-4.8)
[2019-07-06] MEDS: Lactated Ringers 1,000 ML PRIMARY IV SCH (07:09)
[2019-07-06 07:29] VITALS: RESP 17; TEMP 98.2
[2019-07-06] MEDS: Ondansetron ODT Tab 4 MG TAB PO PRN ×2 (08:32→14:02)
[2019-07-06 13:57] VITALS: BP 151/74; O2SAT 96
[2019-07-07 13:26] LABS: HEPATITIS B SURFACE AG Negative (Negative)
== END 2019-07-06 14:06 | disposition home or self-care (01) | DRG 392 ==
LOC: ER 23:02 → MED/SURG 07-03 02:24
PROVIDERS: ADMIT Internal Medicine; ATTEND Internal Medicine